=== PATIENT | male | born 1965 | race Caucasian/White ===

== ENCOUNTER 2018-02-22 09:05 | Emergency (ER) | payer BC, OTHER ==
[2018-02-22] MEDS ORDERED: NA CHLORIDE 0.9% 3,000 ML ONE (10:03)
[2018-02-22] MEDS ORDERED: FAMOTIDINE 20 MG/2 ML VIAL IV ONE (10:04)
[2018-02-22] MEDS ORDERED: ONDANSETRON 4 MG/2 ML VIAL ONE (10:07)
--- NOTE | 2018-02-22 10:21 | RAD REPORT ---
EXAM DESCRIPTION: RAD - Chest Single View - 02/22/2018 10:08 am CLINICAL HISTORY: COUGH Chest pain. COMPARISON: No comparisons FINDINGS: Portable technique limits examination quality. The lungs are mildly emphysematous but grossly clear. The heart is normal in size. No displaced fract ures.Blunting of the costophrenic angles is present likely representing pleural thickening or small p leural effusions. IMPRESSION: Prominent COPD.
[2018-02-22 10:26] LABS: Protime INR 0.95
[2018-02-22 11:35] LABS: Albumin 3.5 g/dL (3.4-5.0); Bilirubin Direct 0.1 mg/dL (0-0.2); Bilirubin Total 0.4 mg/dL (0.2-1.0); CKMB Creatine Kinase MB 2.5 ng/mL (0.3-3.6); Magnesium 2.2 mg/dL (1.8-2.4); Protein, Total 6.6 g/dL (6.4-8.2)
--- NOTE | 2018-02-22 12:11 | ER ---
Nurse's Notes [facility] Name: Damion Chirinos Age: 53 yrs Sex: Male : 1965 Arrival Date: 02/22/2018 Time: 09:08 Bed 14 Private MD: Diagnosis: Vomiting;Diarrhea, unspecified;Volume depletion;Heat exhaustion, unspecified Presentation: 02/22 09:25 Presenting complaint: Patient states: i have this stomach pain since Thursday hj (epigastric area), i was sweating and fell because i think i'm dehydrated; reports nausea and vomiting, diarrhea; denies fever but reports sweats;. Transition of care: patient was not received from another setting of care. Onset of symptoms was February 22, 2018. Risk Assessment: Do you want to hurt yourself or someone else? Patient reports no desire to harm self or others. Initial Sepsis Screen: Does the patient meet any 2 criteria? No. Patient's initial sepsis screen is negative. Does the patient have a suspected source of infection? No. Patient's initial sepsis screen is negative. Care prior to arrival: None. 09:25 Method Of Arrival: Ambulatory 09:25 Acuity: MYA 3 hj Triage Assessment: : General: Appears in no apparent distress. uncomfortable, Behavior is calm, cooperative, hj appropriate for age. Pain: Complains of pain in epigastric area. EENT: No signs and/or symptoms were reported regarding the EENT system. Neuro: Level of Consciousness is awake, alert, obeys commands, Oriented to person, place, time, situation, Appropriate for age. Cardiovascular: Capillary refill < 3 seconds Patient's skin is warm and dry. Respiratory: Airway is patent Respiratory effort is even, unlabored, Respiratory pattern is regular, symmetrical. GI: Abdomen is flat, non-distended, Bowel sounds present X 4 quads. Reports upper abdominal pain, diarrhea, nausea, vomiting. : Derm: No signs and/or symptoms reported regarding the dermatologic system. Musculoskeletal: No signs and/or symptoms reported regarding the musculoskeletal system. Historical: - Allergies: : No Known Allergies; hj - Home Meds: : None [Active]; hj - PMHx: : None; hj - PSHx: : None; hj - Immunization history:: Adult Immunizations up to date. - Social history:: Smoking status: Patient uses tobacco products, smokes two packs cigarettes per day. Patient/guardian denies using alcohol. - Ebola Screening: : Patient negative for fever greater than or equal to 101.5 degrees Fahrenheit, and additional compatible Ebola Virus Disease symptoms Patient denies exposure to infectious person Patient denies travel to an Ebola-affected area in the 21 days before illness onset. Screenin:27 Abuse screen: Denies threats or abuse. Denies injuries from another. Nutritional hj screening: No deficits noted. Tuberculosis screening: No symptoms or risk factors identified. Fall Risk None identified. Assessment: 09:29 Reassessment: see ttriage for assessment. GI: Reports upper abdominal pain, diarrhea, hj nausea, vomiting. 11:39 General: Appears in no apparent distress. comfortable, Behavior is calm, cooperative, aj appropriate for age. Neuro: Level of Consciousness is awake, alert, obeys commands, Oriented to person, place, time, situation, Appropriate for age. Respiratory: Airway is patent Respiratory effort is even, unlabored, Respiratory pattern is regular, symmetrical. GI: Abdomen is flat, non-distended. Derm: Skin is intact, is healthy with good turgor, Skin is pink, warm \T\ dry. normal. 12:17 Reassessment: Patient appears in no apparent distress at this time. No changes from aj previously documented assessment. Patient and/or family updated on plan of care and expected duration. Pain level reassessed. Patient is alert, oriented x 3, equal unlabored respirations, skin warm/dry/pink. Patient states feeling better. Patient states symptoms have improved. Vital Signs: 09:24 BP 127 / 91; Pulse 106; Resp 18; Temp 98.2(O); Pulse Ox 97% on R/A; Weight 68.04 kg; Height 6 ft. 1 in. (185.42 cm); Pain 10/10; 11:38 BP 120 / 88; Pulse 86; Resp 19; Pulse Ox 99% on R/A; aj 12:02 BP 125 / 85; Pulse 79; Resp 16; Pulse Ox 99% on R/A; aj 09:24 Body Mass Index 19.79 (68.04 kg, 185.42 cm) ED Course: 09:08 Patient arrived in ED. rg4 09:20 Thong Centeno MD is Attending Physician. twyla 09:23 Saqib Mcnair, TERESA is Primary Nurse. hj 09:26 Triage completed. hj 09:28 Arm band placed on left wrist. hj 09:29 Patient has correct armband on for positive identification. Placed in gown. Bed in low hj position. Call light in reach. Side rails up X 1. 09:37 Initial lab(s) drawn, by me, sent to lab. Inserted saline lock: 22 gauge in right hj antecubital area, using aseptic technique. Blood collected. 10:01 EKG done, by special technical operations officer. reviewed by Thong Centeno MD. at1 10:07 X-ray completed. Portable x-ray completed in exam room. Patient tolerated procedure mh1 well. 10:08 XRAY Chest (1 view) In Process Unspecified. EDMS 12:17 No provider procedures requiring assistance completed. IV discontinued, intact, aj bleeding controlled, No redness/swelling at site. Pressure dressing applied. Administered Medications: 10:00 Drug: NS 0.9% 1000 ml Route: IV; Rate: 1 bolus; Site: right antecubital; hj 11:02 Follow up: IV Status: Completed infusion hj 10:00 Drug: NS 0.9% 1000 ml Route: IV; Rate: 1 bolus; Site: right antecubital; hj 11:02 Follow up: IV Status: Completed infusion hj 10:00 Drug: Zofran 4 mg Route: IVP; Site: right antecubital; hj 11:02 Follow up: Response: No adverse reaction; Nausea is decreased hj 10:00 Drug: Pepcid 20 mg Route: IVP; Site: right antecubital; hj 11:01 Follow up: Response: No adverse reaction hj 10:57 Drug: NS 0.9% 1000 ml Route: IV; Rate: 125 ml/hr; Site: right antecubital; dm5 12:18 Follow up: Response: No adverse reaction; IV Status: Completed infusion; IV Intake: aj 300ml Intake: 12:18 IV: 300ml; Total: 300ml. aj Outcome: 12:10 Discharge ordered by . twyla 12:17 Discharged to home ambulatory. aj 12:17 Condition: good 12:17 Discharge instructions given to patient, Instructed on discharge instructions, follow up and referral plans. medication usage, Demonstrated understanding of instructions, follow-up care, medications, Prescriptions given X 2. 12:19 Patient left the ED. aj Signatures: Dispatcher [employer] Magaly Walls RN RN dm5 Myers, Amanda, RN Thong Aponte MD MD cha Harvey, Martha 1 Yessenia jung, stock handler EKG Tat1 Saqib Mcnair RN RN hj Garcia, Rubi 4
--- NOTE | 2018-02-22 12:11 | EDPHYS ---
Physician Documentation [facility] Name: Damion Chirinos Age: 53 yrs Sex: Male : 1965 Arrival Date: 02/22/2018 Time: 09:08 Bed 14 Private MD: ED Physician Thong Centeno HPI: 02/22 09:51 This 53 yrs old Male presents to ER via Ambulatory with complaints of twyla Nausea/Vomiting. 09:51 The patient presents to the emergency department with nausea, vomiting. Onset: The twyla symptoms/episode began/occurred 2 day(s) ago. Possible causes: unknown. The symptoms are aggravated by food , The symptoms are alleviated by remaining still. Associated signs and symptoms: Pertinent positives: diarrhea, nausea, vomiting. Severity of symptoms: At their worst the symptoms were mild moderate in the emergency department the symptoms are unchanged. The patient has not experienced similar symptoms in the past. Historical: - Allergies: : No Known Allergies; hj - Home Meds: : None [Active]; hj - PMHx: : None; hj - PSHx: : None; hj - Immunization history:: Adult Immunizations up to date. - Social history:: Smoking status: Patient uses tobacco products, smokes two packs cigarettes per day. Patient/guardian denies using alcohol. - Ebola Screening: : Patient negative for fever greater than or equal to 101.5 degrees Fahrenheit, and additional compatible Ebola Virus Disease symptoms Patient denies exposure to infectious person Patient denies travel to an Ebola-affected area in the 21 days before illness onset. ROS: 09:52 Constitutional: Negative for fever, chills, and weight loss, Eyes: Negative for injury, twyla pain, redness, and discharge, ENT: Negative for injury, pain, and discharge, Neck: Negative for injury, pain, and swelling, Cardiovascular: Negative for chest pain, palpitations, and edema, Respiratory: Negative for shortness of breath, cough, wheezing, and pleuritic chest pain, Back: Negative for injury and pain, : Negative for injury, bleeding, discharge, and swelling, MS/Extremity: Negative for injury and deformity, Skin: Negative for injury, rash, and discoloration, Neuro: Negative for headache, weakness, numbness, tingling, and seizure, Psych: Negative for depression, anxiety, suicide ideation, homicidal ideation, and hallucinations, Allergy/Immunology: Negative for hives, rash, and allergies, Endocrine: Negative for neck swelling, polydipsia, polyuria, polyphagia, and marked weight changes, Hematologic/Lymphatic: Negative for swollen nodes, abnormal bleeding, and unusual bruising. 09:52 Abdomen/GI: Positive for abdominal pain, nausea and vomiting, diarrhea. Exam: 09:52 Constitutional: This is a well developed, well nourished patient who is awake, alert, twyla and in no acute distress. Head/Face: Normocephalic, atraumatic. Eyes: Pupils equal round and reactive to light, extra-ocular motions intact. Lids and lashes normal. Conjunctiva and sclera are non-icteric and not injected. Cornea within normal limits. Periorbital areas with no swelling, redness, or edema. ENT: Nares patent. No nasal discharge, no septal abnormalities noted. Tympanic membranes are normal and external auditory canals are clear. Oropharynx with no redness, swelling, or masses, exudates, or evidence of obstruction, uvula midline. Mucous membranes moist. Neck: Trachea midline, no thyromegaly or masses palpated, and no cervical lymphadenopathy. Supple, full range of motion without nuchal rigidity, or vertebral point tenderness. No Meningismus. Chest/axilla: Normal chest wall appearance and motion. Nontender with no deformity. No lesions are appreciated. Cardiovascular: Regular rate and rhythm with a normal S1 and S2. No gallops, murmurs, or rubs. Normal PMI, no JVD. No pulse deficits. Respiratory: Lungs have equal breath sounds bilaterally, clear to auscultation and percussion. No rales, rhonchi or wheezes noted. No increased work of breathing, no retractions or nasal flaring. Back: No spinal tenderness. No costovertebral tenderness. Full range of motion. Male : Normal genitalia with no discharge or lesions. Skin: Warm, dry with normal turgor. Normal color with no rashes, no lesions, and no evidence of cellulitis. MS/ Extremity: Pulses equal, no cyanosis. Neurovascular intact. Full, normal range of motion. Neuro: Awake and alert, GCS 15, oriented to person, place, time, and situation. Cranial nerves II-XII grossly intact. Motor strength 5/5 in all extremities. Sensory grossly intact. Cerebellar exam normal. Normal gait. Psych: Awake, alert, with orientation to person, place and time. Behavior, mood, and affect are within normal limits. 09:52 Abdomen/GI: Inspection: abdomen appears normal, Bowel sounds: normal, Palpation: abdomen is soft and non-tender, Liver: no appreciated palpable abnormalities, Hernia: not appreciated. Vital Signs: 09:24 BP 127 / 91; Pulse 106; Resp 18; Temp 98.2(O); Pulse Ox 97% on R/A; Weight 68.04 kg; hj Height 6 ft. 1 in. (185.42 cm); Pain 10/10; 11:38 BP 120 / 88; Pulse 86; Resp 19; Pulse Ox 99% on R/A; aj 12:02 BP 125 / 85; Pulse 79; Resp 16; Pulse Ox 99% on R/A; aj 09:24 Body Mass Index 19.79 (68.04 kg, 185.42 cm) MDM: 09:20 Patient medically screened. [facility] 09:53 Data reviewed: vital signs, nurses notes, lab test result(s), EKG, radiologic studies, twyla plain films. 02/22 09:51 Order name: Basic Metabolic Panel; Complete Time: 12:10 [facility] 02/22 09:51 Order name: CBC with Diff [facility] 02/22 09:51 Order name: Ckmb; Complete Time: 12:10 [facility] 02/22 09:51 Order name: CPK; Complete Time: 12:10 [facility] 02/22 09:51 Order name: LFT's; Complete Time: 12:10 [facility] 02/22 09:51 Order name: Magnesium; Complete Time: 12:10 [facility] 02/22 09:51 Order name: NT PRO-BNP; Complete Time: 12:10 [facility] 02/22 09:51 Order name: PT-INR; Complete Time: 12:10 [facility] 02/22 09:51 Order name: Ptt, Activated; Complete Time: 12:10 [facility] 02/22 09:51 Order name: Troponin (emerg Dept Use Only); Complete Time: 12:10 [facility] 02/22 09:51 Order name: XRAY Chest (1 view); Complete Time: 12:10 [facility] 02/22 09:51 Order name: EKG; Complete Time: 09:52 [facility] 02/22 09:51 Order name: Cardiac monitoring; Complete Time: 09:57 [facility] 02/22 09:51 Order name: EKG - Nurse/Tech; Complete Time: [facility] 02/22 09:51 Order name: IV Saline Lock; Complete Time: [facility] 02/22 09:51 Order name: Labs collected and sent; Complete Time: [facility] 02/22 09:51 Order name: O2 Per Protocol; Complete Time: [facility] 02/22 09:51 Order name: O2 Sat Monitoring; Complete Time: [facility] 02/22 10:28 Order name: Labs - recollect needed; Complete Time: bd Administered Medications: 10:00 Drug: NS 0.9% 1000 ml Route: IV; Rate: 1 bolus; Site: right antecubital; hj 11:02 Follow up: IV Status: Completed infusion hj 10:00 Drug: NS 0.9% 1000 ml Route: IV; Rate: 1 bolus; Site: right antecubital; hj 11:02 Follow up: IV Status: Completed infusion hj 10:00 Drug: Zofran 4 mg Route: IVP; Site: right antecubital; hj 11:02 Follow up: Response: No adverse reaction; Nausea is decreased hj 10:00 Drug: Pepcid 20 mg Route: IVP; Site: right antecubital; hj 11:01 Follow up: Response: No adverse reaction Drug: NS 0.9% 1000 ml Route: IV; Rate: 125 ml/hr; Site: right antecubital; dm5 12:18 Follow up: Response: No adverse reaction; IV Status: Completed infusion; IV Intake: aj 300ml Disposition: 02/22/18 12:10 Discharged to Home. Impression: Vomiting, Diarrhea, unspecified, Volume depletion, Heat exhaustion, unspecified. - Condition is Stable. - Discharge Instructions: Food Choices to Help Relieve Diarrhea, Adult, Diarrhea, Adult, Nausea and Vomiting, Adult, Nausea and Vomiting, Adult, [id number], Diarrhea, Adult, [id number], Heat Exhaustion Information. - Prescriptions for Pepcid 20 mg Oral Tablet - take 1 tablet by ORAL route every 12 hours for 10 days; 20 tablet. Zofran 4 mg Oral Tablet - take 1 tablet by ORAL route every 12 hours As needed; 20 tablet. - Medication Reconciliation Form, Thank You Letter, Antibiotic Education, Prescription Opioid Use form. - Follow up: Private Physician; When: 2 - 3 days; Reason: Recheck today's complaints, Continuance of care, Re-evaluation by your physician. - Problem is new. - Symptoms have improved. Signatures: Dispatcher [employer] EDMS Aislinn Frederick Magaly Hess, RN RN Yessenia Todd RN Thong Aponte MD MD cha Joaquin, Henry RN RN hj Corrections: (The following items were deleted from the chart) 12:19 12:10 02/22/2018 12:10 Discharged to Home. Impression: Vomiting; Diarrhea, unspecified; aj Volume depletion; Heat exhaustion, unspecified. Condition is Stable. Discharge Instructions: Food Choices to Help Relieve Diarrhea, Adult, Diarrhea, Adult, Nausea and Vomiting, Adult, Nausea and Vomiting, Adult, [id number], Diarrhea, Adult, [id number], Heat Exhaustion Information. Prescriptions for Pepcid 20 mg Oral Tablet - take 1 tablet by ORAL route every 12 hours for 10 days; 20 tablet, Zofran 4 mg Oral Tablet - take 1 tablet by ORAL route every 12 hours As needed; 20 tablet. and Forms are Medication Reconciliation Form, Thank You Letter, Antibiotic Education, Prescription Opioid Use. Follow up: Private Physician; When: 2 - 3 days; Reason: Recheck today's complaints, Continuance of care, Re-evaluation by your physician. Problem is new. Symptoms have improved. twyla
[2018-02-22 12:32] LABS: Absolute Lymphocytes (CBC) 1.3 K/uL (0.7-4.9); Absolute Monocytes 0.5 K/uL (0.1-1.3); Absolute Neutrophil 4.8 K/uL (1.8-8.0); Basophils % 0.5 % (0-1.3); Eosinophils % 1.1 % (0-4.4); Hematocrit 42.6 % (39.6-49.0); MCH 32.1 pg (27.0-35.0); MCV 92.9 fL (80-100); MPV 7.5 fL (7.6-11.3); Monocytes % 8.1 % (3.3-12.3); RBC Red Blood Cell Count 4.59 M/uL (4.33-5.43)
[2018-02-22 13:12] LABS: Urine Blood TRACE (NEG); Urine Glucose NEGATIVE (NEG); Urine Protein NEGATIVE (NEG)
--- NOTE | 2018-02-22 14:02 | EKG ---
Test Date: 2018-02-22 Test Time: 09:46:54 Die Tester: JANEL MEASUREMENT RESULTS: Intervals: Rate: 105 DC: 150 QRSD: 82 QT: 322 QTc: 425 [place]: P: 84 DC: 150 QRS: 78 T: 77 INTERPRETIVE STATEMENTS: Sinus tachycardia Otherwise normal ECG No previous ECG available for comparison Electronically Signed On 02-22-18 14:01:39 CDT by Emigdio Rodriguez
== END 2018-02-22 12:19 | disposition home or self-care (01) ==
LOC: ER 09:05
DX: E86.9 Volume depletion, unspecified (principal); R19.7 Diarrhea, unspecified; X30.XXXA Exposure to excessive natural heat, initial encounter; Y93.89 Activity, other specified; Y92.9 Unspecified place or not applicable; F17.210 Nicotine dependence, cigarettes, uncomplicated
CPT/HCPCS: 36415; 71045; 80048; 80076; 81003; 82550; 82553; 83735; 83880; 84484; 85025; 85610; 85730; 93005; 96361; 96374; 96375; 99284; J2405; J7030